=== PATIENT | male | born 1960 | race Caucasian/White ===

== ENCOUNTER 2018-08-30 13:23 | Inpatient (IN) | payer OTHER ==
[~2018-08-30] VITALS: Ht 177.8 cm; Wt 78.8 kg
[~2018-08-30 13:23] MED LIST: BUPR-173 PO; BUPR100T11 PO; BUPR1FIL SL; CEPH-368 PO; CLON0.1T22 PO; CYCL5TAB PO; HYDR-3245 PO; PROP10TA16 PO; QUET25TA PO; QUET50TA PO; SENN1TAB8 PO; SERT100T32 PO; SERT25TA3 PO; Suboxone PO
--- NOTE | 2018-08-30 13:27 | NUR ---
57 Y/O MALE BIB AMBULANCE WITH C/O ETOH "I WAS AT MY HOUSE WHEN THE PARAMEDICS CAME. I CALLED THEM. I'M DYING. I'M AN ALCOHOLIC. I WEAR 2 LPM OF OXYGEN WHEN I'M SITTING AND 5 WHEN IM WALKING. I SMOKE STILL. I'M HAVING THOUGHTS OF HURTING MYSELF." NO C/O HI. NO C/O N/V/D, TRAUMA, CP, SOB, CP.
[2018-08-30] MEDS ORDERED: SODIUM CHLORIDE FLUSH 10ML SYR IVF ONE ×2 (14:00→18:00)
[2018-08-30 14:24] LABS: BASOPHILS # (AUTO) 0.03 x10^3/uL (0-0.1); BASOPHILS % (AUTO) 1 % (0-1); EOSINOPHILS # (AUTO) 0.13 x10^3/uL (0-0.4); EOSINOPHILS % (AUTO) 2 % (1-7); LYMPHOCYTES # (AUTO) 1.77 x10^3/uL (1-3.4); LYMPHOCYTES % (AUTO) 25 % (22-44); MD NO; MEAN CORPUSCULAR HEMOGLOBIN 34.5 pg (27.5-34.5); MEAN CORPUSCULAR HGB CONC 34.2 g/dL (33.2-36.2); MEAN CORPUSCULAR VOLUME 100.8 fL (81-97); MEAN PLATELET VOLUME 6.9 fL (7.4-10.4); MONOCYTES # (AUTO) 0.29 x10^3/uL (0.2-0.8); MONOCYTES % (AUTO) 4 % (2-9); NEUTROPHILS # (AUTO) 4.93 x10^3/uL (1.8-6.8); NEUTROPHILS % (AUTO) 69 % (42-75); PLATELET COUNT 117 x10^3/uL (130-400); RED BLOOD COUNT 4.51 x10^6/uL (4.38-5.82); RED CELL DISTRIBUTION WIDTH 17.1 % (9.4-14.8)
[2018-08-30 14:29] LABS: ALBUMIN 3.3 g/dL (3.4-5.0); ANION GAP 8 mmol/L (5-15); CALCIUM 8.2 mg/dL (8.5-10.1); CHLORIDE 105 mmol/L (98-107)
[2018-08-30 14:43] LABS: ALANINE AMINOTRANSFERASE 14 U/L (12-78); ALKALINE PHOSPHATASE 116 U/L (45-117); BILIRUBIN,TOTAL 0.5 mg/dL (0.2-1.0); CREATININE 0.92 mg/dL (0.7-1.3); SALICYLATE LEVEL 6.7 mg/dL (2.8-20.0); TOTAL PROTEIN 7.3 g/dL (6.4-8.2)
[2018-08-30 14:47] LABS: ACETAMINOPHEN < 2 mcg/mL (10-30)
[2018-08-30 15:49] LABS: AMPHETAMINE SCREEN, URINE Negative (Negative); BARBITURATE SCREEN, URINE Negative (Negative); BENZODIAZEPINE SCREEN, URINE Negative (Negative); CANNABINOID SCREEN, URINE Negative (Negative); COCAINE SCREEN, URINE Negative (Negative); METHADONE SCREEN, URINE Negative (Negative); OPIATE SCREEN, URINE Negative (Negative)
--- NOTE | 2018-08-30 15:53 | NUR ---
LATE ENTRY FOR 1530 UA TO LAB. PT GIVEN MORE BLANKETS. ALL SAFETY MEASURES OBTAINED. NO NEEDS REQUESTED AT THIS TIME. WILL CONTINUE TO MONITOR.
--- NOTE | 2018-08-30 15:54 | NUR ---
LATE ENTRY FOR 1430 PT RESTING ON GURNEY. NO ACUTE DISTRESS NOTED. ALL SAFETY MEASURES OBTAINED. WILL CONTINUE TO MONITOR.
--- NOTE | 2018-08-30 17:00 | NUR ---
PT STATES "[facility] AND I'M FREEZING!!! I WANT TO KILL MYSELF" PT EDUCATED THAT THE [facility] DIVERT[facility] TO [facility] WHEN EMS BROUGHT HIM IN. PT GIVEN THE BEAR WARMER AND MORE BLANKETS. ALL SAFETY MEASURES OBTAINED. SITTER AT DOORWAY, PT WITHIN FULL VIEW.
--- NOTE | 2018-08-30 17:08 | NUR ---
PT YELLING AND RIPPING OFF ALL MONITORS. PT ASKED TO LEAVE THEM ON. PT CONTINUES TO RIP EVERYTHING OFF. NO MONITORS ON PT. PT REFUSES TO PUT THEM BACK ON
--- NOTE | 2018-08-30 17:16 | NUR ---
PT CUSSING AT ME. PT TELLING STAFF "FUCK YOU! FUCK YOU!" PT ASKED NOT TO CUSS AT ME. PT CONTINUES TO CUSS AT ME. THIS RN STATED "I WILL BE BACK WHEN YOU CAN TALK TO ME NICER." PT SCREAMING "YOU ALL ARE A BIG FUCKING PUSSY. PUSSY. YOU MOTHER FUCKERS."
--- NOTE | 2018-08-30 17:43 | NUR ---
PT MUCH CALMER. PT SPOKE WITH EDMD. PIV ESTABLISHED. PT VERBALIZED THAT HE IS NOT TO PULL OUT PIV.
[2018-08-30] MEDS ORDERED: LORazepam 2 MG/ML, 1ML ONE ×2 (17:44→18:09)
[2018-08-30] MEDS: LORazepam 2 MG/ML, 1ML IVPush PRN ×3 (17:46→21:46)
--- NOTE | 2018-08-30 17:50 | NUR ---
PT VERY APOLOGETIC. PT STATES "I'M VERY SORRY. I DIDN'T MEAN TO GET UPSET. I APOLOGIZE. I DON'T WANT TO BE THAT WAY AND DIDN'T MEAN IT. I'M SORRY." THIS RN THANKED HIM AND ACCEPTED APOLOGY AND STATED "NOW LETS GET YOU FEELING BETTER." PT WAS THANKFUL. NO ACUTE DISTRESS NOTED. PT STILL REFUSING MONITORS AT THIS TIME. PT GIVEN DIET TRAY. PT STATES "I'M DONT WANT TO EAT RIGHT NOW." ALL SAFETY MEASURES OBTAINED.
--- NOTE | 2018-08-30 17:57 | NUR ---
PT NOW EATING SOME OF HIS DIET TRAY
[2018-08-30] MEDS ORDERED: SODIUM CHLORIDE FLUSH 10ML SYR IVF PRN (18:00)
--- NOTE | 2018-08-30 18:49 | NUR ---
PT SLEEPING ON GURNEY. NO ACUTE DISTRESS NOTED. ALL SAFETY MEASURES OBTAINED. WILL CONTINUE TO MONITOR.
--- NOTE | 2018-08-30 19:03 | NUR ---
BEDSIDE REPORT TO MILAN JAIN.
--- NOTE | 2018-08-30 19:45 | NUR ---
Report to [facility] to see pt then pt ready for transport.
[2018-08-30] MEDS ORDERED: BISACODYL 10 MG SUPP PR PRN (21:30)
[2018-08-30] MEDS ORDERED: DOCUSATE 100 MG CAPSULE PO PRN (21:30)
[2018-08-30] MEDS ORDERED: ALUMINUM/MAG/SIMETHICONE 30 ML UDC PO PRN (21:30)
[2018-08-30 21:31] VITALS: BP 109/63
[2018-08-30] MEDS: ONDANSETRON 2MG/ML, 2ML IV PRN (23:28)
[2018-08-30] MEDS: POTASSIUM CHLORIDE 20 MEQ, MVI ADULT 10 ML, FOLIC ACID 1 MG, MAGNESIUM SULFATE 1 GM in ... IV SCH (23:28)
[2018-08-31 00:38] VITALS: BP 113/75
[2018-08-31] MEDS: LORazepam 2 MG/ML, 1ML IVPush PRN ×2 (00:41→05:46)
[2018-08-31] MEDS: ACETAMINOPHEN 325 MG TABLET PO PRN ×2 (03:07→10:51)
[2018-08-31] MEDS: DILTIAZEM 5 MG/ML, 5ML IVPush PRN (03:35)
[2018-08-31 05:38] LABS: BASOPHILS # (AUTO) 0.05 x10^3/uL (0-0.1); BASOPHILS % (AUTO) 1 % (0-1); EOSINOPHILS # (AUTO) 0.23 x10^3/uL (0-0.4); EOSINOPHILS % (AUTO) 3 % (1-7); LYMPHOCYTES # (AUTO) 1.58 x10^3/uL (1-3.4); LYMPHOCYTES % (AUTO) 21 % (22-44); MD NO; MEAN CORPUSCULAR HEMOGLOBIN 33.8 pg (27.5-34.5); MEAN CORPUSCULAR HGB CONC 33.4 g/dL (33.2-36.2); MEAN CORPUSCULAR VOLUME 101.1 fL (81-97); MEAN PLATELET VOLUME 7.2 fL (7.4-10.4); MONOCYTES # (AUTO) 0.48 x10^3/uL (0.2-0.8); MONOCYTES % (AUTO) 6 % (2-9); NEUTROPHILS # (AUTO) 5.19 x10^3/uL (1.8-6.8); NEUTROPHILS % (AUTO) 69 % (42-75); PLATELET COUNT 129 x10^3/uL (130-400); RED BLOOD COUNT 4.38 x10^6/uL (4.38-5.82)
[2018-08-31 05:45] LABS: ALANINE AMINOTRANSFERASE 13 U/L (12-78); ANION GAP 6 mmol/L (5-15); CALCIUM 8.2 mg/dL (8.5-10.1); CHLORIDE 105 mmol/L (98-107); CREATININE 0.93 mg/dL (0.7-1.3)
[2018-08-31 05:48] LABS: ALKALINE PHOSPHATASE 107 U/L (45-117); BILIRUBIN,TOTAL 0.7 mg/dL (0.2-1.0); TOTAL PROTEIN 6.8 g/dL (6.4-8.2)
[2018-08-31] MEDS: POTASSIUM CHLORIDE 20 MEQ, MVI ADULT 10 ML, FOLIC ACID 1 MG, MAGNESIUM SULFATE 1 GM in ... IV SCH ×2 (06:15→13:24)
[2018-08-31] MEDS ORDERED: CHLORDIAZEPOXIDE 25 MG CAPSULE PO PRN (07:00)
[2018-08-31] MEDS ORDERED: LORazepam 1MG TABLET PO PRN ×3 (07:00)
[2018-08-31] MEDS ORDERED: LORazepam 2 MG/ML, 1ML IV PRN ×3 (07:00)
[2018-08-31] MEDS: CHLORDIAZEPOXIDE 25 MG CAPSULE PO SCH ×4 (07:59→21:53)
[2018-08-31] MEDS: MULTIVITAMINS/MINERALS TABLET PO SCH (07:59)
[2018-08-31 08:05] VITALS: BP 124/81
[2018-08-31] MEDS ORDERED: NICOTINE 14MG/24 HR PATCH.TD24 ONE (09:58)
[2018-08-31] MEDS ORDERED: SODIUM CHLORIDE 0.9% 1,000ML IVBOLUS ONE (10:00)
[2018-08-31] MEDS: NICOTINE 14MG/24 HR PATCH.TD24 TD SCH (10:03)
[2018-08-31] MEDS: GABAPENTIN 100 MG CAPSULE PO SCH ×3 (10:03→21:53)
[2018-08-31] MEDS: VALPROATE SODIUM 250 MG/5 ML ORAL SOLN PO SCH ×3 (10:03→21:53)
[2018-08-31] MEDS ORDERED: cloniDINE 0.1MG PATCH TD SCH (11:00)
[2018-08-31] MEDS: LORazepam 1MG TABLET PO PRN (11:58)
[2018-08-31 12:47] VITALS: BP 133/82
[2018-08-31] MEDS: LORazepam 2 MG/ML, 1ML IV PRN ×3 (15:23→22:19)
[2018-08-31] MEDS: ONDANSETRON 2MG/ML, 2ML IV PRN (17:40)
[2018-08-31 20:24] VITALS: BP 156/94
[2018-09-01 02:07] VITALS: BP 150/88
[2018-09-01] MEDS: LORazepam 2 MG/ML, 1ML IV PRN ×3 (04:02→20:01)
[2018-09-01 04:31] VITALS: BP 141/98
[2018-09-01] MEDS: DILTIAZEM 5 MG/ML, 5ML IVPush PRN (04:33)
[2018-09-01 05:02] LABS: ANION GAP 4 mmol/L (5-15); CALCIUM 8.1 mg/dL (8.5-10.1); CHLORIDE 110 mmol/L (98-107); CREATININE 0.93 mg/dL (0.7-1.3)
[2018-09-01] MEDS: PANTOPROZOLE 40MG TABLET PO SCH (06:23)
[2018-09-01] MEDS: CHLORDIAZEPOXIDE 25 MG CAPSULE PO SCH ×3 (06:23→20:01)
[2018-09-01 06:55] VITALS: BP 152/83
[2018-09-01 07:25] LABS: BASOPHILS # (AUTO) 0.03 x10^3/uL (0-0.1); BASOPHILS % (AUTO) 1 % (0-1); EOSINOPHILS # (AUTO) 0.33 x10^3/uL (0-0.4); EOSINOPHILS % (AUTO) 6 % (1-7); LYMPHOCYTES # (AUTO) 1.22 x10^3/uL (1-3.4); LYMPHOCYTES % (AUTO) 23 % (22-44); MD SCAN; MEAN CORPUSCULAR HEMOGLOBIN 33.2 pg (27.5-34.5); MEAN CORPUSCULAR HGB CONC 33.2 g/dL (33.2-36.2); MEAN CORPUSCULAR VOLUME 100.1 fL (81-97); MEAN PLATELET VOLUME 7.7 fL (7.4-10.4); MONOCYTES % (AUTO) 6 % (2-9); NEUTROPHILS # (AUTO) 3.33 x10^3/uL (1.8-6.8); NEUTROPHILS % (AUTO) 64 % (42-75); PLATELET COUNT 96 x10^3/uL (130-400); RED BLOOD COUNT 3.91 x10^6/uL (4.38-5.82); RED CELL DISTRIBUTION WIDTH 16.6 % (9.4-14.8)
[2018-09-01] MEDS: LORazepam 1MG TABLET PO PRN ×2 (08:37→15:43)
[2018-09-01] MEDS: GABAPENTIN 100 MG CAPSULE PO SCH ×3 (08:37→20:01)
[2018-09-01] MEDS: MULTIVITAMINS/MINERALS TABLET PO SCH (08:37)
[2018-09-01] MEDS: VALPROATE SODIUM 250 MG/5 ML ORAL SOLN PO SCH ×3 (08:37→20:01)
[2018-09-01] MEDS: POTASSIUM CHLORIDE 20 MEQ, MVI ADULT 10 ML, FOLIC ACID 1 MG, MAGNESIUM SULFATE 1 GM in ... IV SCH (10:13)
[2018-09-01] MEDS: METOPROLOL TARTRATE 25 MG TABLET PO SCH ×2 (11:42→18:00)
[2018-09-01] MEDS: NICOTINE 14MG/24 HR PATCH.TD24 TD SCH (11:43)
[2018-09-01] MEDS: NEUTRA PHOS K 250 MG TABLET PO SCH ×3 (11:43→20:01)
[2018-09-01] MEDS: ACETAMINOPHEN 325 MG TABLET PO PRN (12:36)
[2018-09-01] MEDS: LIDODERM 5% PATCH TD PRN (12:37)
[2018-09-01 12:40] VITALS: BP 129/81
[2018-09-01] MEDS ORDERED: HALOPERIDOL 5 MG/ML IM PRN (13:30)
[2018-09-01 20:15] VITALS: BP 165/94
[2018-09-01] MEDS: BUPRENORPHINE/NALOXONE 8-2MG SL SCH (22:39)
[2018-09-01] MEDS: MELATONIN 5 MG TABLET PO PRN (22:39)
[2018-09-02 00:41] VITALS: BP 146/89
[2018-09-02] MEDS: ACETAMINOPHEN 325 MG TABLET PO PRN ×2 (02:38→13:12)
[2018-09-02 04:38] LABS: ALANINE AMINOTRANSFERASE 10 U/L (12-78); ALBUMIN 2.5 g/dL (3.4-5.0); ANION GAP 4 mmol/L (5-15); CALCIUM 7.5 mg/dL (8.5-10.1); CHLORIDE 112 mmol/L (98-107); CREATININE 0.86 mg/dL (0.7-1.3)
[2018-09-02 04:40] LABS: ALKALINE PHOSPHATASE 79 U/L (45-117); BILIRUBIN,TOTAL 0.9 mg/dL (0.2-1.0); TOTAL PROTEIN 5.9 g/dL (6.4-8.2)
[2018-09-02 04:50] LABS: BASOPHILS # (AUTO) 0.02 x10^3/uL (0-0.1); BASOPHILS % (AUTO) 0 % (0-1); EOSINOPHILS # (AUTO) 0.25 x10^3/uL (0-0.4); EOSINOPHILS % (AUTO) 5 % (1-7); LYMPHOCYTES # (AUTO) 1.51 x10^3/uL (1-3.4); LYMPHOCYTES % (AUTO) 30 % (22-44); MD SCAN; MEAN CORPUSCULAR HEMOGLOBIN 34.5 pg (27.5-34.5); MEAN CORPUSCULAR HGB CONC 34.1 g/dL (33.2-36.2); MEAN CORPUSCULAR VOLUME 101.4 fL (81-97); MEAN PLATELET VOLUME 7.7 fL (7.4-10.4); MONOCYTES # (AUTO) 0.34 x10^3/uL (0.2-0.8); MONOCYTES % (AUTO) 7 % (2-9); NEUTROPHILS # (AUTO) 2.88 x10^3/uL (1.8-6.8); NEUTROPHILS % (AUTO) 58 % (42-75); PLATELET COUNT 76 x10^3/uL (130-400); RED BLOOD COUNT 3.39 x10^6/uL (4.38-5.82); RED CELL DISTRIBUTION WIDTH 16.9 % (9.4-14.8)
[2018-09-02] MEDS: PANTOPROZOLE 40MG TABLET PO SCH (05:56)
[2018-09-02] MEDS: METOPROLOL TARTRATE 25 MG TABLET PO SCH ×2 (05:57→18:13)
[2018-09-02 06:21] VITALS: BP 157/95
[2018-09-02] MEDS: VALPROATE SODIUM 250 MG/5 ML ORAL SOLN PO SCH ×3 (09:13→21:21)
[2018-09-02] MEDS: SENNA/DOCUSATE TABLET PO SCH (09:13)
[2018-09-02] MEDS: SERTRALINE 100MG TABLET PO SCH (09:13)
[2018-09-02] MEDS: GABAPENTIN 100 MG CAPSULE PO SCH ×3 (09:13→21:21)
[2018-09-02] MEDS: MULTIVITAMINS/MINERALS TABLET PO SCH (09:13)
[2018-09-02] MEDS: BUPRENORPHINE/NALOXONE 8-2MG SL SCH (09:14)
[2018-09-02] MEDS: POTASSIUM CHLORIDE 20 MEQ, MVI ADULT 10 ML, FOLIC ACID 1 MG, MAGNESIUM SULFATE 1 GM in ... IV SCH (11:09)
[2018-09-02] MEDS: NICOTINE 14MG/24 HR PATCH.TD24 TD SCH (11:10)
[2018-09-02] MEDS: LIDODERM 5% PATCH TD PRN (12:32)
[2018-09-02 13:23] VITALS: BP 152/89
[2018-09-02 18:30] VITALS: BP 142/89
[2018-09-02] MEDS ORDERED: CHLORDIAZEPOXIDE 25 MG CAPSULE PO SCH (21:00)
[2018-09-02] MEDS: OLANZAPINE 2.5 MG TABLET PO SCH (21:21)
[2018-09-02] MEDS: LORazepam 0.5MG TABLET PO PRN (21:37)
[2018-09-02] MEDS: MELATONIN 5 MG TABLET PO PRN (22:12)
[2018-09-03 00:54] VITALS: BP 149/84
[2018-09-03] MEDS: METOPROLOL TARTRATE 25 MG TABLET PO SCH ×2 (05:13→17:19)
[2018-09-03] MEDS: PANTOPROZOLE 40MG TABLET PO SCH (05:13)
[2018-09-03 06:06] LABS: ALBUMIN 2.7 g/dL (3.4-5.0); ANION GAP 4 mmol/L (5-15); CALCIUM 7.8 mg/dL (8.5-10.1); CHLORIDE 111 mmol/L (98-107)
[2018-09-03 06:08] LABS: CREATININE 0.83 mg/dL (0.7-1.3)
[2018-09-03 06:09] LABS: MEAN CORPUSCULAR HEMOGLOBIN 34.3 pg (27.5-34.5); MEAN CORPUSCULAR HGB CONC 33.7 g/dL (33.2-36.2); MEAN CORPUSCULAR VOLUME 101.7 fL (81-97); MEAN PLATELET VOLUME 7.9 fL (7.4-10.4); PLATELET COUNT 73 x10^3/uL (130-400); RED CELL DISTRIBUTION WIDTH 17.2 % (9.4-14.8)
[2018-09-03 06:34] LABS: BASOPHILS # (AUTO) 0.02 x10^3/uL (0-0.1); BASOPHILS % (AUTO) 1 % (0-1); EOSINOPHILS # (AUTO) 0.33 x10^3/uL (0-0.4); EOSINOPHILS % (AUTO) 7 % (1-7); LYMPHOCYTES # (AUTO) 1.25 x10^3/uL (1-3.4); LYMPHOCYTES % (AUTO) 25 % (22-44); MD SCAN; MONOCYTES # (AUTO) 0.25 x10^3/uL (0.2-0.8); MONOCYTES % (AUTO) 5 % (2-9); NEUTROPHILS # (AUTO) 3.21 x10^3/uL (1.8-6.8); NEUTROPHILS % (AUTO) 63 % (42-75)
[2018-09-03 07:49] VITALS: BP 173/93
[2018-09-03] MEDS ORDERED: BUPRENORPHINE/NALOXONE 8-2MG SL ONE (08:18)
[2018-09-03] MEDS: VALPROATE SODIUM 250 MG/5 ML ORAL SOLN PO SCH ×2 (08:20→15:42)
[2018-09-03] MEDS: MULTIVITAMINS/MINERALS TABLET PO SCH (08:20)
[2018-09-03] MEDS: GABAPENTIN 100 MG CAPSULE PO SCH ×3 (08:20→19:41)
[2018-09-03] MEDS: SENNA/DOCUSATE TABLET PO SCH (08:21)
[2018-09-03] MEDS: NICOTINE 14MG/24 HR PATCH.TD24 TD SCH (08:21)
[2018-09-03] MEDS: SERTRALINE 100MG TABLET PO SCH (08:21)
[2018-09-03] MEDS: LORazepam 0.5MG TABLET PO PRN (08:28)
[2018-09-03] MEDS ORDERED: BUPRENORPHINE/NALOXONE 2-0.5MG SL SCH (09:00)
[2018-09-03] MEDS: POTASSIUM CHLORIDE 20 MEQ, MVI ADULT 10 ML, FOLIC ACID 1 MG, MAGNESIUM SULFATE 1 GM in ... IV SCH (09:18)
[2018-09-03 12:57] VITALS: BP 156/89
[2018-09-03] MEDS: ACETAMINOPHEN 325 MG TABLET PO PRN (15:40)
[2018-09-03 17:19] VITALS: BP 168/97
[2018-09-03 18:46] VITALS: BP 158/88
[2018-09-03] MEDS: MELATONIN 5 MG TABLET PO PRN (19:41)
[2018-09-03] MEDS: OLANZAPINE 2.5 MG TABLET PO SCH (19:41)
[2018-09-03] MEDS: BUPRENORPHINE/NALOXONE 2-0.5MG SL SCH (19:41)
[2018-09-04 01:38] VITALS: BP_SYST 163; BP_SYST 168; BP_DIAS 89; BP_DIAS 94
[2018-09-04 02:57] VITALS: BP_SYST 168; BP_SYST 170; BP_DIAS 81; BP_DIAS 91
[2018-09-04 03:49] VITALS: BP 146/83
[2018-09-04] MEDS: PANTOPROZOLE 40MG TABLET PO SCH (05:14)
[2018-09-04] MEDS: METOPROLOL TARTRATE 25 MG TABLET PO SCH (05:14)
[2018-09-04 05:47] LABS: ALBUMIN 2.5 g/dL (3.4-5.0); ANION GAP 3 mmol/L (5-15); CALCIUM 7.8 mg/dL (8.5-10.1); CHLORIDE 112 mmol/L (98-107); CREATININE 0.83 mg/dL (0.7-1.3)
[2018-09-04 05:55] LABS: MEAN CORPUSCULAR HEMOGLOBIN 34.2 pg (27.5-34.5); MEAN CORPUSCULAR HGB CONC 33.5 g/dL (33.2-36.2); MEAN CORPUSCULAR VOLUME 102.1 fL (81-97); MEAN PLATELET VOLUME 7.7 fL (7.4-10.4); PLATELET COUNT 79 x10^3/uL (130-400); RED BLOOD COUNT 3.26 x10^6/uL (4.38-5.82); RED CELL DISTRIBUTION WIDTH 16.8 % (9.4-14.8)
[2018-09-04 06:31] LABS: BASOPHILS # (AUTO) 0.01 x10^3/uL (0-0.1); BASOPHILS % (AUTO) 0 % (0-1); EOSINOPHILS # (AUTO) 0.27 x10^3/uL (0-0.4); EOSINOPHILS % (AUTO) 6 % (1-7); LYMPHOCYTES # (AUTO) 0.89 x10^3/uL (1-3.4); LYMPHOCYTES % (AUTO) 20 % (22-44); MD SCAN; MONOCYTES # (AUTO) 0.27 x10^3/uL (0.2-0.8); MONOCYTES % (AUTO) 6 % (2-9); NEUTROPHILS # (AUTO) 2.94 x10^3/uL (1.8-6.8); NEUTROPHILS % (AUTO) 67 % (42-75)
[2018-09-04 07:00] VITALS: BP 152/84
[2018-09-04 08:07] VITALS: BP 151/87
[2018-09-04] MEDS: SERTRALINE 100MG TABLET PO SCH (08:10)
[2018-09-04] MEDS: BUPRENORPHINE/NALOXONE 2-0.5MG SL SCH (08:10)
[2018-09-04] MEDS: SENNA/DOCUSATE TABLET PO SCH (08:10)
[2018-09-04] MEDS: MULTIVITAMINS/MINERALS TABLET PO SCH (08:10)
[2018-09-04] MEDS: GABAPENTIN 100 MG CAPSULE PO SCH ×2 (08:10→16:05)
[2018-09-04] MEDS: POTASSIUM CHLORIDE 20 MEQ, MVI ADULT 10 ML, FOLIC ACID 1 MG, MAGNESIUM SULFATE 1 GM in ... IV SCH (09:59)
[2018-09-04] MEDS: NICOTINE 14MG/24 HR PATCH.TD24 TD SCH (10:00)
[2018-09-04] MEDS: ACETAMINOPHEN 325 MG TABLET PO PRN (12:16)
[2018-09-04 13:12] VITALS: BP 142/81
[2018-09-04] MEDS ORDERED: BUPR100T11 PO (14:40)
[2018-09-04] MEDS ORDERED: METO25TA35 PO (14:40)
== END 2018-09-04 16:25 | DRG 897 ==
LOC: ED 17:59 → EDIP 18:00 → ED 18:15 → 4WST 21:05
PROVIDERS: ADMIT Hospitalist; ATTEND Hospitalist
DX: F10.229 Alcohol dependence with intoxication, unspecified (principal); R45.851 Suicidal ideations; D68.59 Other primary thrombophilia; F11.259 Opioid dependence with opioid-induced psychotic disorder, unspecified; L03.90 Cellulitis, unspecified; K29.20 Alcoholic gastritis without bleeding; F11.23 Opioid dependence with withdrawal; F17.203 Nicotine dependence unspecified, with withdrawal; I48.91 Unspecified atrial fibrillation; F31.9 Bipolar disorder, unspecified; D69.6 Thrombocytopenia, unspecified; D75.89 Other specified diseases of blood and blood-forming organs; E87.6 Hypokalemia; F41.9 Anxiety disorder, unspecified; I10 Essential (primary) hypertension; Y90.8 Blood alcohol level of 240 mg/100 ml or more; Z79.899 Other long term (current) drug therapy; Z91.14 Patient's other noncompliance with medication regimen; Z91.19 Patient's noncompliance with other medical treatment and regimen
CPT/HCPCS: 36415; 99285; J0572; J0574; 71045; 80048; 80053; 80307; 80329; 82040; 83735; 84100; 85025; 93005; 96374; 96376; G0378; J2405; J3475; J3480; G0480; J2060; J7030

== ENCOUNTER 2018-10-16 09:50 | Emergency (ER) | payer MEDICARE ==
[~2018-10-16] VITALS: Ht 170.2 cm; Wt 75.0 kg
[~2018-10-16 09:50] MED LIST changes: +APIX5TAB PO; +CEFD300C37 PO; +DILT120C11 PO; +DOXY100T PO; +METO25TA35 PO; +PRED20TA PO; -QUET25TA PO; +QUET25TA7 PO; +SENN-177 PO; -SENN1TAB8 PO
[2018-10-16 09:58] VITALS: BP 135/73
--- NOTE | 2018-10-16 10:24 | NUR ---
Recieved report from MILAN Iglesias. All questions answered. Assuming care of pt. Pt presents to ED by EMS after being found down at home for unknown time without wearing home oxygen. Pt is reported to have last drank "1 pint" of hard alcohol within last 24 hours. Pt is lethargic, and GCS is 3. Pt's pupils are round, sluggish to react to light, 1mm, and glassy. Pt has ETOH odor. Pt is connected to phototypesetting equipment monitor, spo2% monitor, and NIBP. All safety measures in place. Pt is tachycardic in 90-100 range of bpm. Pt is 93% on 3.5L oxygen via nasal cannula. Pt is taking shallow respirations with accessory muscle use, and chest rise and fall is even bilaterally. Lab at bedside. All safety measures in place. Call light within reach. Skin is pink, warm, dry, lung sounds diminshed and clear on anterior, and radial and dorsal pedis pulses are strong and regular.
[2018-10-16 10:30] LABS: BASOPHILS % (AUTO) 0 % (0-1); EOSINOPHILS # (AUTO) 0.07 x10^3/uL (0-0.4); EOSINOPHILS % (AUTO) 1 % (1-7); LYMPHOCYTES # (AUTO) 0.82 x10^3/uL (1-3.4); LYMPHOCYTES % (AUTO) 10 % (22-44); MD NO; MEAN CORPUSCULAR HEMOGLOBIN 33.8 pg (27.5-34.5); MEAN CORPUSCULAR HGB CONC 33.7 g/dL (33.2-36.2); MEAN CORPUSCULAR VOLUME 100.3 fL (81-97); MEAN PLATELET VOLUME 7.3 fL (7.4-10.4); MONOCYTES # (AUTO) 0.29 x10^3/uL (0.2-0.8); MONOCYTES % (AUTO) 4 % (2-9); NEUTROPHILS # (AUTO) 7.09 x10^3/uL (1.8-6.8); NEUTROPHILS % (AUTO) 86 % (42-75); PLATELET COUNT 180 x10^3/uL (130-400); RED BLOOD COUNT 3.82 x10^6/uL (4.38-5.82); RED CELL DISTRIBUTION WIDTH 17.5 % (9.4-14.8)
[2018-10-16 10:39] LABS: ALANINE AMINOTRANSFERASE 22 U/L (12-78); ALBUMIN 3.7 g/dL (3.4-5.0); ANION GAP 10 mmol/L (5-15); CALCIUM 8.9 mg/dL (8.5-10.1); CHLORIDE 109 mmol/L (98-107); CREATININE 1.04 mg/dL (0.7-1.3); SALICYLATE LEVEL 2.6 mg/dL (2.8-20.0)
[2018-10-16 10:42] LABS: ALKALINE PHOSPHATASE 93 U/L (45-117); BILIRUBIN,TOTAL 0.4 mg/dL (0.2-1.0); TOTAL PROTEIN 7.4 g/dL (6.4-8.2)
[2018-10-16 10:44] LABS: ACETAMINOPHEN < 2 mcg/mL (10-30)
--- NOTE | 2018-10-16 12:09 | NUR ---
Pt responds to verbal stimuli at this time. Pt provided urinal. Pt states, "just in time." Please see second assessment charted. NADN. All safety measures in place. Call light within reach. Pt connected to all monitors.
--- NOTE | 2018-10-16 13:00 | NUR ---
PT AMBULATORY IN [address] HOME [address] PT VERBALIZES "I'VE BEEN IN THE ROOM FOR HOURS AND NO ONE IS HELPING ME" NOTED IN PREVIOUS CHARTING PT WAS FOLLOWED BY RN. PT REFUSING TO RETURN TO ROOM, STATING "I'M LEAVING" PT LEFT ED WITH UPRIGHT STEADY GAIT.
== END 2018-10-16 13:01 | disposition home or self-care (01) ==
LOC: ED 11:52
DX: F10.220 Alcohol dependence with intoxication, uncomplicated (principal); J44.9 Chronic obstructive pulmonary disease, unspecified; F32.9 Major depressive disorder, single episode, unspecified; I10 Essential (primary) hypertension
CPT/HCPCS: 36415; 80053; 80307; 80329; 85025; 99283; G0480

== ENCOUNTER 2018-10-24 11:34 | Emergency (ER) | payer OTHER ==
[~2018-10-24] VITALS: Ht 177.8 cm; Wt 77.3 kg
--- NOTE | 2018-10-24 11:40 | NUR ---
PT WAS AT [place] FOR LAST TWO WEEKS FOR DETOX AWAITING TRANSFER TO [facility] IN [place], PT FOUND OUT HIS MOTHER YESTERDAY, LEFT AMA TO DRINK, REPORTS 2QTS WHISKEY, LAST DRINK AT 0700. PT HAS LAC TO L TOE, DOES NOT KNOW WHAT HAPPENED. [place] [facility] DIVERTED TO [facility].
[2018-10-24 11:44] VITALS: BP 157/95
[2018-10-24] MEDS ORDERED: LIDOCAINE-MPF 1%, 5ML ONE (12:29)
[2018-10-24] MEDS ORDERED: LIDOCAINE-MPF 1%, 5ML INFIL ONE (12:30)
[2018-10-24 12:35] LABS: BASOPHILS # (AUTO) 0.08 x10^3/uL (0-0.1); BASOPHILS % (AUTO) 1 % (0-1); EOSINOPHILS # (AUTO) 0.24 x10^3/uL (0-0.4); EOSINOPHILS % (AUTO) 3 % (1-7); LYMPHOCYTES % (AUTO) 23 % (22-44); MD NO; MEAN CORPUSCULAR HEMOGLOBIN 34.7 pg (27.5-34.5); MEAN CORPUSCULAR HGB CONC 34.7 g/dL (33.2-36.2); MEAN CORPUSCULAR VOLUME 100.1 fL (81-97); MEAN PLATELET VOLUME 6.9 fL (7.4-10.4); MONOCYTES # (AUTO) 0.51 x10^3/uL (0.2-0.8); MONOCYTES % (AUTO) 7 % (2-9); NEUTROPHILS # (AUTO) 4.62 x10^3/uL (1.8-6.8); NEUTROPHILS % (AUTO) 66 % (42-75); PLATELET COUNT 402 x10^3/uL (130-400); RED BLOOD COUNT 4.04 x10^6/uL (4.38-5.82); RED CELL DISTRIBUTION WIDTH 16.4 % (9.4-14.8)
[2018-10-24 12:38] LABS: ANION GAP 7 mmol/L (5-15); CHLORIDE 107 mmol/L (98-107)
--- NOTE | 2018-10-24 12:38 | NUR ---
PROVIDER AT BEDSIDE TO DEBREDE AND SUTURE WOUND
[2018-10-24 12:41] LABS: CREATININE 1.05 mg/dL (0.7-1.3)
[2018-10-24] MEDS ORDERED: BACITRACIN ZINC OINT 500U/GM, 0.9 GM ONE (13:03)
--- NOTE | 2018-10-24 13:16 | NUR ---
PT UNHOOKED SELF FROM MONITOR AND PUT CLOTHES ON, URINATED IN CLOTHES AND STATES TO RN "I NEED TO LEAVE I NEED TO TAKE CARE OF THINGS, I HAD TO GO TO THE BATHROOM". GREEN MEAT PACKER TO CALL PT A CAB
== END 2018-10-24 13:24 | disposition home or self-care (01) ==
LOC: ED 13:18
DX: S92.425B Nondisplaced fracture of distal phalanx of left great toe, initial encounter for open fracture (principal); I10 Essential (primary) hypertension; J44.9 Chronic obstructive pulmonary disease, unspecified; F32.9 Major depressive disorder, single episode, unspecified; W01.0XXA Fall on same level from slipping, tripping and stumbling without subsequent striking against object, initial encounter; Y93.89 Activity, other specified; Y92.89 Other specified places as the place of occurrence of the external cause; Y99.8 Other external cause status
CPT/HCPCS: 11760; 36415; 80048; 85025; 99284

== ENCOUNTER 2018-11-03 14:35 | Emergency (ER) | payer OTHER ==
[~2018-11-03] VITALS: Ht 177.8 cm; Wt 73.0 kg
[2018-11-03 14:35] VITALS: BP 146/84
--- NOTE | 2018-11-03 14:35 | NUR ---
SANGEETAH from home c/o SOB, left rib pain after GLF 11/03 r/t EtOH (07/21 bourbon today), "I've been drinking more since my mom "; Yuesa attempted to give Neb Tx APPLICATION SYSTEMS ENGINEER but pt refused 1/2 of tx & demanded pain medication; pt changed into gown, very agitated but responds to staff continuing to demand pain meds, comfort measures provided, call light within reach.
[2018-11-03 15:09] LABS: BASOPHILS # (AUTO) 0.08 x10^3/uL (0-0.1); BASOPHILS % (AUTO) 1 % (0-1); EOSINOPHILS # (AUTO) 0.26 x10^3/uL (0-0.4); EOSINOPHILS % (AUTO) 3 % (1-7); LYMPHOCYTES # (AUTO) 2.27 x10^3/uL (1-3.4); LYMPHOCYTES % (AUTO) 28 % (22-44); MD NO; MEAN CORPUSCULAR HEMOGLOBIN 33.8 pg (27.5-34.5); MEAN CORPUSCULAR HGB CONC 33.1 g/dL (33.2-36.2); MEAN PLATELET VOLUME 6.4 fL (7.4-10.4); MONOCYTES # (AUTO) 0.37 x10^3/uL (0.2-0.8); MONOCYTES % (AUTO) 5 % (2-9); NEUTROPHILS # (AUTO) 5.03 x10^3/uL (1.8-6.8); NEUTROPHILS % (AUTO) 63 % (42-75); PLATELET COUNT 396 x10^3/uL (130-400); RED BLOOD COUNT 4.14 x10^6/uL (4.38-5.82); RED CELL DISTRIBUTION WIDTH 16.5 % (9.4-14.8)
--- NOTE | 2018-11-03 15:10 | NUR ---
pt returned from XR, pushing call light every 3 mins, yelling into duenas for help, cussing at this RN for pain meds despite attempts to redirect, calm & de-escalate pt ("Im fucking in pain, do something for it!"), Dr Garza aware of pt demands and explained to pt need to obtain test results prior to pain meds d/t recent EtOH intake; no other needs at this time, call light within reach.
[2018-11-03 15:19] LABS: ALANINE AMINOTRANSFERASE 20 U/L (12-78); ALBUMIN 3.7 g/dL (3.4-5.0); ANION GAP 6 mmol/L (5-15); CALCIUM 8.6 mg/dL (8.5-10.1); CHLORIDE 112 mmol/L (98-107); CREATININE 1.05 mg/dL (0.7-1.3)
[2018-11-03 15:23] LABS: ALKALINE PHOSPHATASE 122 U/L (45-117); BILIRUBIN,TOTAL 0.2 mg/dL (0.2-1.0); TOTAL PROTEIN 8.1 g/dL (6.4-8.2)
--- NOTE | 2018-11-03 15:44 | NUR ---
Note sahil in EDM - 11/03/18 at 1547 by SAPNA BIBA from home c/o SOB, left rib pain after GLF 11/03 r/t EtOH (07/21 bourbon today), "I've been drinking more since my mom "; Violet attempted to give Neb Tx SLEEVE IRONER but pt refused 1/2 of tx & demanded pain medication; pt changed into gown, very agitated but responds to staff continuing to demand pain meds, comfort measures provided, call light within reach.
--- NOTE | 2018-11-03 15:47 | NUR ---
FIRST CONTACT WITH PT. PT WAS SCREAMING "HELP." THIS RN STOPPED BY THE ROOM TO ASK WHAT WAS NEEDED. PT STARTED YELLING AND CUSSING AT THIS RN. "I'VE BEEN FUCKING PUSHING MY CALL LIGHT. NOBODY FUCKING COMES HERE." PT ASKED NOT TO CUSS AT THIS RN. PT EDUCATED REGARDING PROCEDURE AND THE PRIMARY RN WILL BE IN SOON SHE IS AVAILABLE OR OTHER AVAILABLE STAFF. PT REFUSED TO LISTEN AND CONTINUED TO CUSS AT THIS RN. NO ACUTE DISTRESS NOTED DURING CONTACT.
[2018-11-03] MEDS ORDERED: KETOROLAC 30 MG/1 ML ONE (15:55)
[2018-11-03] MEDS ORDERED: KETOROLAC 30 MG/1 ML IM ONE (16:00)
--- NOTE | 2018-11-03 16:04 | NUR ---
pt laying on gurney awake & continues to be very agitated d/t not receiving pain meds, medicated per eMAR, otherwise responds to staff approp, comfort measures provided, call light within reach.
--- NOTE | 2018-11-03 16:05 | NUR ---
pt also refusing VS- ERP aware
--- NOTE | 2018-11-03 16:09 | NUR ---
pt continues to yell & cuss at staff for pain meds (Fuck you! [facility], [facility]'ll just go there!") but refuses DC home, security called, pt escorted out of ED with DC instructions & Rx, ambulated indep to exit.
== END 2018-11-03 16:10 | disposition home or self-care (01) ==
LOC: ED 15:16
DX: S20.212A Contusion of left front wall of thorax, initial encounter (principal); W01.0XXA Fall on same level from slipping, tripping and stumbling without subsequent striking against object, initial encounter; Y93.89 Activity, other specified; Y92.410 Unspecified street and highway as the place of occurrence of the external cause; Y99.8 Other external cause status; J44.9 Chronic obstructive pulmonary disease, unspecified; I10 Essential (primary) hypertension; F17.200 Nicotine dependence, unspecified, uncomplicated
CPT/HCPCS: 36415; 71101; 80053; 80307; 85025; 93005; 96372; 99284; J1885

== ENCOUNTER 2018-11-08 11:42 | Emergency (ER) | payer OTHER ==
[~2018-11-08] VITALS: Ht 177.8 cm; Wt 75.0 kg
[2018-11-08] MEDS ORDERED: methylPREDNISolone SOD SUCC 125 MG/2 ML IVP ONE (12:00)
[2018-11-08] MEDS ORDERED: MAALOX/HYOSCYAMINE/LIDOCAINE 45 ML BTL PO ONE (12:00)
[2018-11-08] MEDS ORDERED: ALBUTEROL/IPRATROPIUM 2.5MG/0.5MG, 3 ML NPPB ONE (12:00)
[2018-11-08] MEDS ORDERED: SODIUM CHLORIDE FLUSH 10ML SYR IVF ONE (12:00)
--- NOTE | 2018-11-08 12:00 | NUR ---
PT. ARRIVES BY [facility] FROM HIS HOME WITH C/O ETOH ABUSE AND FEELING SUICIDAL. PT. WAS DIVERTED FROM THE [facility]. PT. UNDRESSED AND HIS BELONGINGS WERE LABELED, PLACED IN BAGS AND PLACED IN THE CLOSED. ROOM SECURED WITH A SITTER OUTSIDE. PT. STATES HE MAY CUT HIS WRISTS FOR KILL HIMSELF. PT. STATES HE ATTEMPTED SUICIDE 10 YEARS AGO WITH AN AMBIEN OD. UPON ARRIVAL PT. IS DEMANDING FOOD AND BLANKETS. PT. WAS GIVEN BLANKETS FOR WARMTH AND A MEAL WAS ORDERED. PT. WEARS OXYGEN ALL DAY AND NIGHT. PT. IS CURRENTLY ON O2 AT 2 LITERS WITH SATS AT 95%. SIDERAILS REMAIN UP X 2 WITH THE CALL LIGHT IN PLACE.
[2018-11-08 12:17] LABS: BASOPHILS # (AUTO) 0.08 x10^3/uL (0-0.1); BASOPHILS % (AUTO) 1 % (0-1); EOSINOPHILS # (AUTO) 0.12 x10^3/uL (0-0.4); EOSINOPHILS % (AUTO) 1 % (1-7); LYMPHOCYTES # (AUTO) 2.04 x10^3/uL (1-3.4); LYMPHOCYTES % (AUTO) 23 % (22-44); MD NO; MEAN CORPUSCULAR HEMOGLOBIN 34.8 pg (27.5-34.5); MEAN CORPUSCULAR HGB CONC 34.3 g/dL (33.2-36.2); MEAN CORPUSCULAR VOLUME 101.5 fL (81-97); MEAN PLATELET VOLUME 6.3 fL (7.4-10.4); MONOCYTES # (AUTO) 0.27 x10^3/uL (0.2-0.8); MONOCYTES % (AUTO) 3 % (2-9); NEUTROPHILS # (AUTO) 6.25 x10^3/uL (1.8-6.8); NEUTROPHILS % (AUTO) 71 % (42-75); PLATELET COUNT 230 x10^3/uL (130-400); RED BLOOD COUNT 3.34 x10^6/uL (4.38-5.82); RED CELL DISTRIBUTION WIDTH 16.4 % (9.4-14.8)
[2018-11-08] MEDS ORDERED: ALBUTEROL/IPRATROPIUM 2.5MG/0.5MG, 3 ML ONE (12:22)
[2018-11-08 12:30] LABS: ALANINE AMINOTRANSFERASE 17 U/L (12-78); ALBUMIN 2.9 g/dL (3.4-5.0); ANION GAP 9 mmol/L (5-15); CALCIUM 7.8 mg/dL (8.5-10.1); CHLORIDE 101 mmol/L (98-107); CREATININE 0.98 mg/dL (0.7-1.3)
[2018-11-08] MEDS ORDERED: MAALOX/HYOSCYAMINE/LIDOCAINE 45 ML BTL ONE (12:34)
[2018-11-08 12:38] LABS: SALICYLATE LEVEL < 1.7 mg/dL (2.8-20.0)
[2018-11-08 12:41] LABS: ALKALINE PHOSPHATASE 112 U/L (45-117); BILIRUBIN,TOTAL 0.7 mg/dL (0.2-1.0); TOTAL PROTEIN 6.6 g/dL (6.4-8.2)
[2018-11-08 12:42] LABS: ACETAMINOPHEN < 2 mcg/mL (10-30)
[2018-11-08 13:00] LABS: FREE T4 (FREE THYROXINE) 0.81 ng/dL (0.76-1.46)
--- NOTE | 2018-11-08 13:00 | NUR ---
REPORT RECEIVED FROM MILAN MCCALL. ASSUMING PRIMARY CARE OF PT. SI PRECAUTIONS ARE IMPLEMENTED. SITTER OUTSIDE OF ROOM MONITORING PT. BELONGINGS COLLECTED AND PLACED IN LOCKER. PT SITTING ON GURNEY WATCHING TV.
--- NOTE | 2018-11-08 13:26 | NUR ---
MEAL DELIVERED TO PT. ANOTHER HEATED BLANKET ALSO PROVIDED TO PT.
--- NOTE | 2018-11-08 13:44 | NUR ---
URINAL PROVIDED TO PT.
--- NOTE | 2018-11-08 13:59 | NUR ---
PT ABLE TO SIGN PAPERWORK TO OBTAINED RECORDS FROM THE [facility]. RN ASKED [facility] TO FAX PAPERWORK REQUESTING MEDICAL RECORDS ON PT.
--- NOTE | 2018-11-08 14:45 | NUR ---
PT ASLEEP ON [facility].
--- NOTE | 2018-11-08 15:58 | NUR ---
PT REQUESTING "SNACKS". RN PROVIDED PT WITH KERLINE CRACKERS AND PEANUT BUTTER.
--- NOTE | 2018-11-08 16:41 | NUR ---
PT ASLEEP ON [facility].
[2018-11-08 17:34] LABS: AMPHETAMINE SCREEN, URINE Negative (Negative); BARBITURATE SCREEN, URINE Negative (Negative); BENZODIAZEPINE SCREEN, URINE Positive (Negative); CANNABINOID SCREEN, URINE Positive (Negative); COCAINE SCREEN, URINE Negative (Negative); METHADONE SCREEN, URINE Negative (Negative); OPIATE SCREEN, URINE Negative (Negative)
--- NOTE | 2018-11-08 17:53 | NUR ---
PT UNABLE TO BLOW IN BREATHALYZER. RN INFORMED ERMD. ERMD TO ORDER ANOTHER BLOOD ALCOHOL LEVEL ON PT.
[2018-11-08] MEDS ORDERED: CHLORDIAZEPOXIDE 25 MG CAPSULE PO PRN (18:00)
[2018-11-08] MEDS ORDERED: CHLORDIAZEPOXIDE 25 MG CAPSULE ONE (18:02)
--- NOTE | 2018-11-08 18:06 | NUR ---
PT STATING HE FEELS LIKE HE IS GOING TO HAVE A "SEIZURE." PT STATES LAST SEIZURE D/T ETOH WD WAS ~1 YEAR AGO. RN INFORMED ERMD. ERMD ADDED MEDICATION TO EMAR. RN ADMINISTERED MEDICATION. VSS.
--- NOTE | 2018-11-08 18:09 | NUR ---
RN ASKED PT WHAT MEDICATION HE TAKES ON A DAILY BASIS. PT STATED "I DONT KNOW THE [facility] KNOWS ALL OF THAT. WHY DIDNT THE AMBULANCE TAKE ME THERE." RN EXPLAINED TO PT THAT THE [facility] WAS ON DIVERT THATS WHY HE IS HERE.
--- NOTE | 2018-11-08 18:18 | NUR ---
LAB AT BEDSIDE OBTAINING BLOOD.
--- NOTE | 2018-11-08 18:46 | NUR ---
PT ASLEEP ON GURNEY. RR EVEN AND UNLABORED. VSS. RN TO GIVE NOC RN REPORT.
--- NOTE | 2018-11-08 18:55 | NUR ---
REPORT TO MILAN ARCE.
--- NOTE | 2018-11-08 19:24 | NUR ---
PT REQUESTING "A PILLOW, MORE MEDS, OR I NEED TO LEAVE". POC DISCUSSED. PT AWARE HE HAS BEEN MEDICATED ALREADY AND DUE TO HIS LEVEL OF INTOXICATION IT IS UNSAFE TO GIVE MEDS THAT HE REQUESTS "KNOCK ME OUT". PT GIVEN PILLOW. PT UNAPPRECIATIVE. SITTER REMAIN IN PLACE.
--- NOTE | 2018-11-08 19:45 | NUR ---
PT REMOVED MONITORING DEVICES FROM SELF. PT THEN PULLING ON MONITORING CORDS. PT REQUESTING TO STOP. CORDS TAKEN FROM PT. PT THREW NASAL CANNULA ON THE FLOOR. PT ENCOURAGED TO WEAR HIS OXYGEN, PT RUDELY REFUSING. GATE CLOSED. CANNULA OFFERED WHICH PT CONTINUES TO REFUSED. SITTER REMAINS IN PLACE.
--- NOTE | 2018-11-08 20:11 | NUR ---
PT GIVEN WATER PER REQUEST. SITTER REMAINS IN PLACE.
--- NOTE | 2018-11-08 20:38 | NUR ---
PT GIVEN MORE WATER PER REQUEST. PT REQUESTING MORE MEDS. MD STATES NO MORE MEDS AT THIS TIME. SITTER REMAINS IN PLACE.
--- NOTE | 2018-11-08 21:05 | NUR ---
PT GIVEN SPRITE PER REQUEST. SITTER REMAINS IN PLACE.
--- NOTE | 2018-11-08 21:58 | NUR ---
PT UP TO RESTROOM AT THIS TIME. PT AMBULATES WITH STEADY GAIT. PT BACK INTO BED. SITTER REMAINS IN PLACE.
--- NOTE | 2018-11-09 01:22 | NUR ---
PT STATING HE FEELS SOBER. INFORMED. REPEAT ETOH ORDERED.
--- NOTE | 2018-11-09 02:02 | NUR ---
PT DENIES SI AT THIS TIME. AT BEDSIDE FOR RECHECK. STATES OKAY FOR DC. PT GIVEN BELONGINGS.
[2018-11-09 02:09] VITALS: BP 174/96
== END 2018-11-09 02:11 | disposition home or self-care (01) ==
LOC: ED 12:59
DX: F10.221 Alcohol dependence with intoxication delirium (principal); J44.9 Chronic obstructive pulmonary disease, unspecified; F17.200 Nicotine dependence, unspecified, uncomplicated; I10 Essential (primary) hypertension; F32.9 Major depressive disorder, single episode, unspecified
CPT/HCPCS: 36415; 71045; 80053; 80307; 80329; 84439; 84443; 84481; 85025; 93005; 94640; 99284; J7512; G0480

== ENCOUNTER 2019-01-04 11:05 | Emergency (ER) | payer OTHER ==
[~2019-01-04] VITALS: Ht 167.6 cm; Wt 59.1 kg
--- NOTE | 2019-01-04 11:19 | NUR ---
PT BROUGHT IN BY [facility] AFTER HE STATED HE WANTED TO JUMP OFF OF HIS BALCONTY OF HIS APARTMENT WHICH IS 16 FLOORS UP. PT STATES HE WANTS TO . PT DRANK 1 PINT OF WHISKEY PRIOR TO ARRIVAL. PT MOVED FROM [facility] TO [facility]. PT HAS HX OF SI. COMPLAINING OF WOUND TO LEFT LEG. NADN. WARM BLANKET GIVEN. ROOM IS SECURED. PERSONAL BELONGING BAGS (2 OF 2) PLACED IN SECURE LOCKER. SITTER AT BEDSIDE. VSS.
[2019-01-04 11:41] LABS: BASOPHILS # (AUTO) 0.08 x10^3/uL (0-0.1); BASOPHILS % (AUTO) 1 % (0-1); EOSINOPHILS # (AUTO) 0.07 x10^3/uL (0-0.4); EOSINOPHILS % (AUTO) 1 % (1-7); LYMPHOCYTES # (AUTO) 1.24 x10^3/uL (1-3.4); LYMPHOCYTES % (AUTO) 19 % (22-44); MD NO; MEAN CORPUSCULAR HEMOGLOBIN 36.2 pg (27.5-34.5); MEAN CORPUSCULAR HGB CONC 33.8 g/dL (33.2-36.2); MEAN CORPUSCULAR VOLUME 107.2 fL (81-97); MONOCYTES # (AUTO) 0.47 x10^3/uL (0.2-0.8); MONOCYTES % (AUTO) 7 % (2-9); NEUTROPHILS # (AUTO) 4.67 x10^3/uL (1.8-6.8); NEUTROPHILS % (AUTO) 72 % (42-75); PLATELET COUNT 164 x10^3/uL (130-400); RED BLOOD COUNT 3.65 x10^6/uL (4.38-5.82); RED CELL DISTRIBUTION WIDTH 15.6 % (9.4-14.8)
[2019-01-04 11:46] LABS: ALANINE AMINOTRANSFERASE 15 U/L (12-78); ALBUMIN 3.3 g/dL (3.4-5.0); ANION GAP 11 mmol/L (5-15); CALCIUM 8.1 mg/dL (8.5-10.1); CHLORIDE 102 mmol/L (98-107); CREATININE 0.97 mg/dL (0.7-1.3)
--- NOTE | 2019-01-04 11:46 | NUR ---
Zoie baxter in ED - 01/04/19 at 1147 by RIAZ PIV ATTEMPTED 3 TIMES. WILL ATTEMPT US GUIDED IV PLACEMENT.
[2019-01-04 11:50] LABS: ALKALINE PHOSPHATASE 100 U/L (45-117); BILIRUBIN,TOTAL 0.5 mg/dL (0.2-1.0); TOTAL PROTEIN 6.7 g/dL (6.4-8.2)
--- NOTE | 2019-01-04 12:09 | NUR ---
UA COLLECTED, LABELED, AND WALKED TO LAB.
[2019-01-04 12:34] LABS: CULTURE INDICATED? NO; MICROSCOPIC AUTO
[2019-01-04 12:36] LABS: AMPHETAMINE SCREEN, URINE Negative (Negative); BARBITURATE SCREEN, URINE Negative (Negative); BENZODIAZEPINE SCREEN, URINE Positive (Negative); CANNABINOID SCREEN, URINE Negative (Negative); COCAINE SCREEN, URINE Negative (Negative); METHADONE SCREEN, URINE Negative (Negative); OPIATE SCREEN, URINE Negative (Negative)
--- NOTE | 2019-01-04 12:40 | NUR ---
meal tray given, pt udated on hold status
--- NOTE | 2019-01-04 13:38 | NUR ---
PT ATTEMPTED BREATHALYZER AT THIS TIME. UNABLE TO COMPLETE TEST. NOTIFIED. SITTER AT BEDSIDE. ROOM SECURED. PT ON OXYGEN AT BASELINE 2L NC.
[2019-01-04 14:58] VITALS: BP 151/84
--- NOTE | 2019-01-04 15:02 | NUR ---
VSS. NADN. PT GIVEN TRAY OF FOOD. PT STATES HE DOESN'T WANT TO EAT RIGHT NOW. TRAY LEFT AT BEDSIDE. PT STATING HE WANTS TO GO HOME. THIS RN UPDATED PT ON POC. SITTER AT BEDSIDE. ROOM SECURE.
--- NOTE | 2019-01-04 15:07 | NUR ---
PT DENIES SI AT THIS TIME. BREATHYLIZER SHOWED 0.09. WILL REASSESS.
--- NOTE | 2019-01-04 16:25 | NUR ---
BREATHYLIZER READS 0.017 AT THIS TIME. PT DENIES SI AND HI. STATES HE WANTS TO GO HOME. UPDATED. MCKENNAN. SITTER AT BEDSIDE. ROOM SECURE.
== END 2019-01-04 16:46 | disposition home or self-care (01) ==
LOC: ED 15:23
DX: F33.9 Major depressive disorder, recurrent, unspecified (principal); F10.220 Alcohol dependence with intoxication, uncomplicated; F17.200 Nicotine dependence, unspecified, uncomplicated; J44.9 Chronic obstructive pulmonary disease, unspecified; I10 Essential (primary) hypertension; I48.91 Unspecified atrial fibrillation
CPT/HCPCS: 36415; 80053; 80307; 81001; 85025; 99284